=== PATIENT | male | born 1960 | race Caucasian/White ===

== ENCOUNTER 2018-12-02 09:53 | Day surgery (SDC) | payer BC ==
[~2018-12-02] VITALS: Ht 172.7 cm; Wt 80.3 kg
[~2018-12-02 09:53] MED LIST: ASPI1TAB PO; CRES20TA PO; METF500T4 PO; RAMI1CAP21 PO
[2018-12-02] MEDS ORDERED: PROPOFOL 200 MG/20 ML VIAL As Ordered ONE (10:36)
[2018-12-02] MEDS ORDERED: LIDOCAINE 2% INJ 100 MG/5 ML SDV (FOR ANES.) As Ordered ONE (10:36)
[2018-12-02] MEDS ORDERED: NS 1,000 ML IV ONE (10:45)
--- NOTE | 2018-12-02 12:01 | ROOR ---
Patient Name: Carlin Monroe Procedure Date: 12/02/2018 11:36 AM Date of : 1960 Age: 58 Room: [facility] Gender: Male Note Status: Finalized Procedure: Colonoscopy Indications: Screening for colorectal malignant neoplasm Providers: Manjinder Krishna Jr, MD Referring MD: Raquel CLEMONS DO Requesting Provider: Medicines: Propofol per Anesthesia Complications: No immediate complications. Procedure: Pre-Anesthesia Assessment: - Prior to the procedure, a History and Physical was performed, and patient medications and allergies were reviewed. The patient is competent. The risks and benefits of the procedure and the sedation options and risks were discussed with the patient. All questions were answered and informed consent was obtained. Patient identification and proposed procedure were verified by the physician and the nurse in the pre-procedure area and in the procedure room. Mental Status Examination: alert and oriented. Airway Examination: normal oropharyngeal airway and neck mobility. Respiratory Examination: clear to auscultation. CV Examination: normal. ASA Grade Assessment: II - A patient with mild systemic disease. After reviewing the risks and benefits, the patient was deemed in satisfactory condition to undergo the procedure. The anesthesia plan was to use moderate sedation / analgesia (conscious sedation). Immediately prior to administration of medications, the patient was re-assessed for adequacy to receive sedatives. The heart rate, respiratory rate, oxygen saturations, blood pressure, adequacy of pulmonary ventilation, and response to care were monitored throughout the procedure. The physical status of the patient was re-assessed after the procedure. The Colonoscope was introduced through the anus and advanced to the cecum, identified by appendiceal orifice and ileocecal valve. The colonoscopy was performed without difficulty. The patient tolerated the procedure well. The quality of the bowel preparation was adequate. Findings: The rectum, recto-sigmoid colon, sigmoid colon, descending colon, transverse colon, cecum, appendiceal orifice and ileocecal valve appeared normal. Two polyps were found in the ascending colon. The polyps were small in size. These polyps were removed with a jumbo cold forceps. Resection and retrieval were complete. Impression: - The rectum, recto-sigmoid colon, sigmoid colon, descending colon, transverse colon, cecum, appendiceal orifice and ileocecal valve are normal. - Two small polyps in the ascending colon, removed with a jumbo cold forceps. Resected and retrieved. Recommendation: - Discharge patient to home (ambulatory). - Repeat colonoscopy in 5-10 years for surveillance based on pathology results. - Telephone my office for pathology results in 1 week. Manjinder Krishna MD Manjinder Krishna Jr, MD 12/02/2018 12:00:49 PM This report has been signed electronically. Number of Addenda: 0 Note Initiated On: 12/02/2018 11:36 AM Estimated Blood Loss: Estimated blood loss: none.
[2018-12-02 12:30] VITALS: BP 110/66
== END 2018-12-02 12:42 | disposition home or self-care (01) ==
LOC: M OPP 09:53
PROVIDERS: ATTEND Surgery
DX: Z12.11 Encounter for screening for malignant neoplasm of colon (principal); D12.6 Benign neoplasm of colon, unspecified; E11.9 Type 2 diabetes mellitus without complications; Z79.82 Long term (current) use of aspirin; Z79.84 Long term (current) use of oral hypoglycemic drugs; Z79.899 Other long term (current) drug therapy

== ENCOUNTER → 2019-05-24 | Outpatient (CLI) | payer BC ==
[~2019-05-24] MED LIST changes: -ASPI1TAB PO; +ASPI81TA26 PO; -CRES20TA PO; +CRES20TA2 PO; +ISOVUE-370 76% 100ML VIAL (Q9967) As Ordered ONE
--- NOTE | 2019-05-25 12:07 | REP ---
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 Comparison: None Technique: Axial CT of both internal auditory canals was performed following the uneventful intravenous administration of 75 ml Isovue 370. Right and left coronal and axial bone reformats were provided. Findings: On the right side, the external auditory canal is patent. The tympanic membrane is unremarkable. There is under pneumatization of the mastoid air cells. There is opacification of the antrum and partial opacification of the epitympanum/ Prussak's space of the middle ear cavity. The right scutum is mildly blunted. The ossicles are intact. The inner ear structures, including the semicircular canals, vestibule, and cochlea are unremarkable. The vestibular aqueduct is not enlarged. The right facial nerve has a normal course. The course of the ICA and position of the jugular bulb are normal. On the left side, the external auditory canal is patent. The tympanic membrane is unremarkable. There is under pneumatization of the mastoid air cells. The left mastoid air cells are poorly visualized. There is partial opacification of the epitympanum/ Prussak's space of the middle ear cavity. On axial image 20, this soft tissue attenuation in Prussak's space has 3 x 1 mm projection into the middle ear cavity, presumably representing the polypoid lesion in question. The ossicles are intact. The inner ear structures, including the semicircular canals, vestibule, and cochlea are unremarkable. The vestibular aqueduct is not enlarged. The left facial nerve has a normal course. The course of the ICA and position of the jugular bulb are normal. No definite abnormality seen within the visualized portion of the brain parenchyma. The visualized paranasal sinuses are clear. Impression: Partial opacification of both middle ear cavities. This opacification has slight finger-like projection caudally into the middle ear on the left which may represent polypoid lesion in question. Findings may represent bilateral middle ear effusions however, cholesteatomas can have a similar appearance. Under pneumatization of the mastoid air cells bilaterally with opacification of the right mastoid air cells. Electronically Signed by Evan Balderrama MD 05/25/2019 08:11 A
== END ==
LOC: M RAD 15:34
PROVIDERS: ATTEND Otolaryngology
DX: D23.20 Other benign neoplasm of skin of unspecified ear and external auricular canal (principal); H90.0 Conductive hearing loss, bilateral
CPT/HCPCS: 70481; Q9967

== ENCOUNTER → 2019-06-15 | Outpatient (REF) | payer BC ==
[~2019-06-15] MED LIST changes: -ISOVUE-370 76% 100ML VIAL (Q9967) As Ordered ONE; +METF-791 PO; -METF500T4 PO
== END ==
LOC: M LAB REF 15:07
PROVIDERS: ATTEND Surgery
DX: D48.5 Neoplasm of uncertain behavior of skin (principal)

== ENCOUNTER → 2020-09-04 | Outpatient (CLI) | payer SELFPAY ==
[~2020-09-04] MED LIST changes: -METF-791 PO; +METF-838 PO
== END ==
LOC: M LABCAHC 15:30
PROVIDERS: ATTEND Pediatrics
DX: Z11.59 Encounter for screening for other viral diseases (principal)

== ENCOUNTER → 2020-09-23 | Outpatient (CLI) | payer SELFPAY | LOC: M LABSMTC 11:24 | PROVIDERS: ATTEND Pediatrics | DX: Z20.828 Contact with and (suspected) exposure to other viral communicable diseases (principal) ==

== ENCOUNTER → 2023-01-12 | Outpatient (CLI) | payer BC, OTHER | LOC: M SLEEP HO 10:43 | PROVIDERS: ATTEND Family Medicine | DX: G47.8 Other sleep disorders (principal) ==

== ENCOUNTER 2023-03-13 11:12 | Day surgery (SDC) | payer BC, OTHER ==
[~2023-03-13] VITALS: Ht 172.7 cm; Wt 77.0 kg
[~2023-03-13 11:12] MED LIST changes: +ERGO500029 PO; +FARX1TAB3 PO; +FINE20TA PO; +FLON1SPR NARES; +NS 1,000 ML IV ONE
[2023-03-13] MEDS ORDERED: propofoL 200 MG/20 ML VIAL As Ordered ONE (12:49)
[2023-03-13] MEDS ORDERED: GLYCOPYRROLATE INJ 0.2 MG/ML 2 ML VIAL As Ordered ONE (12:49)
[2023-03-13] MEDS ORDERED: LIDOCAINE 2% 100MG/5ML SDV (FOR ANES.) As Ordered ONE (12:49)
[2023-03-13 13:40] VITALS: BP 139/75; TEMP 97.3; O2SAT 99
== END 2023-03-13 13:49 | disposition home or self-care (01) ==
LOC: M OPP 11:12
PROVIDERS: ATTEND Surgery
DX: Z12.11 Encounter for screening for malignant neoplasm of colon (principal); Z86.010 Personal history of colon polyps; K21.00 Gastro-esophageal reflux disease with esophagitis, without bleeding; K22.89 Other specified disease of esophagus; K22.2 Esophageal obstruction; Z79.82 Long term (current) use of aspirin; Z79.84 Long term (current) use of oral hypoglycemic drugs; Z79.899 Other long term (current) drug therapy

== ENCOUNTER → 2024-11-29 | Outpatient (CLI) | payer BC, OTHER ==
[~2024-11-29] MED LIST changes: -NS 1,000 ML IV ONE; +RAMI1.258 PO; -RAMI1CAP21 PO
== END ==
LOC: M RAD 15:30
PROVIDERS: ATTEND Physician Assistant
DX: N50.82 Scrotal pain (principal); N50.3 Cyst of epididymis; N44.1 Cyst of tunica albuginea testis; I86.1 Scrotal varices